=== PATIENT | female | born 2000 ===

== ENCOUNTER 2024-12-12 10:15 | Inpatient (IN) | payer MEDICAID, SELFPAY ==
[2024-12-12] VITALS (147 sets, daily range): BP systolic 69–139; BP diastolic 41–88; PULSE 63–127; RESP 16–20; TEMP 36.6–37.1; O2SAT 84–100; BMI 29.7
[2024-12-12] MEDS: OXYTOCIN INJ 10 UNIT/ML VIAL IM (10:25)
--- NOTE | 2024-12-12 10:35 | PD.ADDHP ---
Addendum History & Physical Addendum Date of report being addended: 12/12/24
--- NOTE | 2024-12-12 10:36 | PD.LDHP ---
Documentation for date of: 12/12/24 OB Labor/Induct. HPI History of Present Illness : 4 Para: 4 Term pregnancies: 0 pregnancies: 0 Living children: 4 History of Abortions: Spontaneous and Elective: 0 History of Vaginal deliveries: 0 History of sections: Yes History of : No LUIS: 12/19/24 History of present illness: Ivette is a 24-year-old 4 para 4 at 39 weeks with stated estimated due date of 12/17/2024 for patient who receives care with Dr. Perez at [facility]. Patient presented to labor and delivery through the emergency room after delivery and route to the hospital in her private vehicle. At the time of my evaluation the baby was on the mom's abdomen placenta was delivered and umbilical cord was still connected to the infant. The umbilical cord was doubly clamped and divided and was handed over to the waiting acid tender. Placenta was found floating between the patient's legs, placenta was removed, the skin was thoroughly cleaned and no vaginal lacerations were noted. Patient was only noted to have right clitoral laceration. This was repaired at the bedside using 3-0 Vicryl Past Medical History Surgical History SURGICAL: Positive Section Meds Home Medications and Allergies Home Medications ?Medication ?Instructions ?Recorded ?Confirmed ?Type prenat.vits,derik,nfv-zuar-xguez 1 tab PO QDAY 09/23/17 07/31/18 History ( Vitamin tablet) Allergies Allergy/AdvReac Type Severity Reaction Status Date / Time No Known Allergies Allergy Verified 07/31/18 10:44 OB Exam Physical Exam Vital signs: Pulse BP Pulse Ox 104 H 105/58 L 100 12/12/24 10:26 12/12/24 10:26 12/12/24 10:33 Constitutional Constitutional: no acute distress Routine HEENT Exam Head: Present normocephalic and atraumatic Eye: Present EOMI and PERRL ENT: Present mucous membranes moist Routine Neck Exam Neck: Present supple and trachea midline Routine Cardiovascular Exam Cardiovascular: Present RRR Routine Abdominal Exam Abdominal: Present soft and normoactive bowel sounds Routine Extremities Exam Extremities: Present full ROM Routine Skin Exam Skin: Present intact, dry and warm Routine Neurological Exam Neurological: Present alert, oriented X3 and CN II-XII intact Routine Psychiatric Exam Psychiatric: Present normal affect and normal thought process OB Assessment & Plan Assessment and Plan (1) Precipitous delivery: Status: Acute Assessment and plan: Patient is status post precipitous delivery routine care continue
--- NOTE | 2024-12-12 10:37 | EDNOTE_ITS ---
ED OB Contraction Preg RMI/HPI General Limitations: no limitations RME / HPI RME / HPI Narrative: DR. PARR MAIN ED EVALUATION: 24 year old female at 39 weeks gestation presents to the Emergency Department after precipitous delivery of a full-term infant in her vehicle at approximately 0950 hours. Labor onset was rapid with no reported complications. Patient reports all prior deliveries were vaginal and uncomplicated. Upon EMS arrival, was noted to be crying with pink coloration; umbilical cord remained attached. Placenta had not yet delivered; fundus palpated as slightly distended. Patient was hemodynamically stable and not actively bleeding. OB was notified and patient was transferred via gurney to OB unit for completion of delivery and care. Care transitioned to OBGYN team. Related Data Home Medications ?Medication ?Instructions ?Recorded ?Confirmed prenat.vits,derik,pbo-judi-oshhf 1 tab PO QDAY 09/23/17 07/31/18 ( Vitamin tablet) Previous Rx's ?Medication ?Instructions ?Recorded cephalexin 500 mg capsule 500 mg PO TID #21 caps 07/31 Allergies Allergy/AdvReac Type Severity Reaction Status Date / Time No Known Allergies Allergy Verified 07/31/18 10:44 Review of Systems Review of Systems Systems Reviewed: All systems reviewed, normal except as documented Past Medical History Social History SMOKING STATUS: Never smoker SECOND HAND EXPOSURE: No SUBSTANCE USE: does not use ALCOHOL: Never ED Exam General Limitations: Present no limitations General appearance: Present alert and in no apparent distress Head Head exam: Present atraumatic, normocephalic and normal inspection Eye Eye exam: Present normal appearance, PERRL and EOMI ENT ENT exam: Present normal exam, normal oropharynx and mucous membranes moist Neck Neck exam: Present normal inspection, full ROM and trachea midline Chest Chest inspection: Present normal inspection and symmetric chest wall rise Respiratory Respiratory exam: Present normal lung sounds bilaterally Cardiovascular Cardiovascular exam: Present regular rate, normal rhythm and normal heart sounds Abdominal Exam Abdominal exam: Present distention (abdomen is slightly distended, post ) and normal bowel sounds Extremities Exam Extremities exam: Present normal inspection and full ROM Back Exam Back exam: Present normal inspection and full ROM Neurological Exam Neurological exam: Present alert, oriented X3 and CN II-XII intact Psychiatric Psychiatric exam: Present normal affect and normal mood Skin Skin exam: Present warm, dry, intact and normal color Course Quality Measures none Orders Category Date Time Status Admit to Inpatient Status Routine Admission 12/12/24 10:28 Active Patient Condition Routine Admission 12/12/24 10:28 Ordered Abdominal Binder if Pt Desires x1 Care 12/12/24 10:49 Active Apply Ice Pack to Perineum PRN NOW Care 12/12/24 10:49 Active Breast Pump NOW Care 12/12/24 10:49 Active Consult Assistant Teacher NOW Care 12/12/24 10:28 Active DC IV X1 Care 12/12/24 10:49 Active Encourage Fluid Intake NOW Care 12/12/24 10:49 Active Insert IV NOW Care 12/12/24 10:28 Active May Shower NOW Care 12/12/24 10:49 Ordered Notify provider NEEDED Care 12/12/24 10:49 Active Obtain MMR Consent x1 Care 12/12/24 10:49 Active Obtain Tdap Consent x1 Care 12/12/24 10:49 Active Up ad humberto Routine Care 12/12/24 10:49 Ordered Urinary Catheter, Remove ONCE Care 12/12/24 10:49 Active Referral Routine Cons 12/12/24 10:49 Active Diet Regular Diet 12/12/24 Dinner Active CBC Routine Lab 12/12/24 10:49 Ordered CBC Stat Lab 12/12/24 10:30 Completed Syphilis Stat Lab 12/12/24 10:30 Received Type and Screen Stat Lab 12/12/24 10:30 Results Acetaminophen Tab [Tylenol Tab] Med 12/12/24 10:49 Active 325 mg PO Q4HR PRN Acetaminophen Tab [Tylenol Tab] Med 12/12/24 10:49 Active 650 mg PO Q6HR PRN BENZO/LANO/ALOE (Dermoplast) [Dermoplast] Med 12/12/24 10:28 Active 1 spray TOP PRN PRN HYDROcodone*/APAP 5/325 [[place] 5/325] Med 12/12/24 10:49 Active 1 tab PO Q4HR PRN HYDROcodone*/APAP 5/325 [[place] 5/325] Med 12/12/24 10:49 Active 2 tab PO Q6HR PRN Ibuprofen Tab [Motrin Tab] Med 12/12/24 10:49 Active 800 mg PO Q8HR PRN Ibuprofen Tab [Motrin Tab] Med 12/12/24 10:28 Discontinued 800 mg PO X1 ONE Lidocaine 1% 20 ml [Xylocaine 1% 20 ML] Med 12/12/24 10:28 Discontinued 20 ml INFL PRN ONE Measles, Mumps & Rubella Vacc [M-m-r II w/Diluent] Med 12/12/24 10:49 Active 0.5 ml SCI X1 PRN Methylergonovine Inj [Methergine Inj] Med 12/12/24 10:28 Discontinued 0.2 mg IM X1 PRN Mineral Oil Med 12/12/24 10:28 Discontinued 30 ml TOP PRN PRN Misoprostol [Cytotec] Med 12/12/24 10:[address] X1 PRN OXYTOCIN in NS 20 units [Pitocin 20 units in Ns] Med 12/12/24 10:30 Discontinued 20 unit in 1,000 ml IV 125 mls/hr Oxytocin Inj [Pitocin Inj] Med 12/12/24 10:28 Discontinued 10 unit IM X1 PRN Ringers Lactated 1000 ml [Lactated Ringers] 1,000 ml Med 12/12/24 10:30 Discontinued IV 100 mls/hr Ringers Lactated 500 ml [Lactated Ringers] 500 ml Med 12/12/24 10:28 Discontinued IV 999 mls/hr TET,DIP/PERT AC (Adult)-Tdap [Boostrix Adult (Tdap) Med 12/12/24 10:49 Active Vacc] 0.5 ml IMI X1 PRN Tranexamic Acid 1,000 mg Ivpb [Tranexamic Acid Ivpb] Med 12/12/24 10:28 Active 1,000 mg in 100 ml IV PRNMRX1 ceFAZolin/D5W 2 GM IV [Ancef 2gm Ivpb] Med 12/12/24 14:00 Active 2 gm in 100 ml IV Q8HR fentaNYL INJ [Sublimaze Inj] Med 12/12/24 10:28 Discontinued 100 mcg IVP Q2HR PRN fentaNYL INJ [Sublimaze Inj] Med 12/12/24 10:28 Discontinued 50 mcg IVP Q1HR PRN Code Status Routine Oth 12/12/24 10:28 Ordered Oxygen Delivery NOW RT 12/12/24 10:28 Active Transfer Order Routine Transfer 12/12/24 10:30 Completed Vital Signs Vital signs: Vital Signs Pulse Oximetry (%) 100 12/12/24 10:23 OB/Uterine Contractions MDM Narrative MDM Narrative:: I, Kalani Suárez am scribing for and in the presence of Dr. Parr. Patient data External records reviewed:: [facility] previous records Clinical information provided by:: patient Social determinants that could affect healthcare access:: none Patient has the following chronic illnesses:: . Denies any PMHx, surgeries, daily medications, or known allergies. How is presenting disease/condition affected by chronic disease/condition?: no chronic disease Evaluation data The following diagnostics were reviewed and interpreted by me:: other (specify) (none in emergency department) Lab and/or radiology exams considered but not ordered:: none Interpretation Summary: n/a Medications / Prescriptions Medications or Prescriptions considered but not ordered:: none Medication administrations:: Medication Administration History Acetaminophen (Acetaminophen 325 Mg Tablet) 325 mg PO Q4HR PRN PRN Reason: Patient rated pain 1 to 2 Stop: 01/11/25 10:48 Acetaminophen (Acetaminophen 325 Mg Tablet) 650 mg PO Q6HR PRN PRN Reason: Patient rated pain of 3 Stop: 01/11/25 10:48 Hydrocodone Bitart/Acetaminophen (Hydrocodone/Apap 5/325 Tablet) 1 tab PO Q4HR PRN PRN Reason: Patient rated pain 7 to 8 Stop: 12/17/24 10:48 Hydrocodone Bitart/Acetaminophen (Hydrocodone/Apap 5/325 Tablet) 2 tab PO Q6HR PRN PRN Reason: Patient rated pain 9 to 10 Stop: 12/17/24 10:48 Benzocaine (Benzo/Lano/Aloe (Dermoplast) 60 Gm Can) 1 spray TOP PRN PRN PRN Reason: PERINEAL DISCOMFORT Stop: 01/11/25 10:27 Diphtheria/Tetanus/Acell Pertussis (Diphth,Pertuss(Acell),Tet Vac 0.5 Ml Syr- Adult) 0.5 ml IMi X1 PRN PRN Reason: SEE COMMENTS Tranexamic Acid (Tranexamic Acid Ivpb) 1,000 mg in 100 mls @ 200 mls/hr IV PRNMRX1 PRN PRN Reason: BLEEDING Cefazolin Sodium (Ancef 2gm Ivpb) 2 gm in 100 mls @ 200 mls/hr IV Q8HR SAMIRA Stop: 12/19/24 13:59 Ibuprofen (Ibuprofen Tab 400 Mg Tablet) 800 mg PO Q8HR PRN PRN Reason: PAIN SCALE 4-6 (Moderate Stop: 01/11/25 10:48 Measles/Mumps/Rubella Vaccine Live (Measles, Mumps & Rubella Vacc 0.5 Ml Vial) 0.5 ml SCi X1 PRN PRN Reason: if non-immune or equivocal Discontinued Medications Fentanyl Citrate (Fentanyl Cit Inj 50 Mcg/Ml Amp 2ml) 50 mcg IVP Q1HR PRN PRN Reason: PAIN SCALE 4-6 (Moderate Stop: 12/17/24 10:27 Fentanyl Citrate (Fentanyl Cit Inj 50 Mcg/Ml Amp 2ml) 100 mcg IVP Q2HR PRN PRN Reason: PAIN SCALE 7-10 (Severe Stop: 12/17/24 10:27 Lactated Ringer's (Lactated Ringers) 1,000 mls @ 100 mls/hr IV .Q10H SAMIRA Stop: 01/11/25 10:29 Lactated Ringer's (Lactated Ringers) 500 mls @ 999 mls/hr IV .Q31M PRN PRN Reason: HR tracing (Per Policy) Stop: 01/11/25 10:27 Oxytocin/Sodium Chloride (Pitocin 20 Units In Ns) 20 unit in 1,000 mls @ 125 mls/hr IV .Q8H SAMIRA Stop: 01/11/25 10:29 Last Admin: 12/12/24 10:42 Dose: 125 mls/hr Documented By: TS Co-signed By: TPO Ibuprofen (Ibuprofen Tab 400 Mg Tablet) 800 mg PO X1 ONE Stop: 12/12/24 10:29 Last Admin: 12/12/24 10:43 Dose: 800 mg Documented By: TS Lidocaine HCl (Lidocaine Hcl 1% 20 Ml Vial) 20 ml INFL PRN ONE Stop: 12/12/24 10:29 Last Admin: 12/12/24 10:42 Dose: 20 ml Documented By: TS Methylergonovine Maleate (Methylergonovine Inj 0.2 Mg/Ml Vial) 0.2 mg IM X1 PRN PRN Reason: Excessive Bleeding Mineral Oil (Mineral Oil 30 Ml Udc) 30 ml TOP PRN PRN PRN Reason: SEE COMMENTS Stop: 01/11/25 10:27 Misoprostol (Misoprostol 200 Mcg Tablet) [address] X1 PRN PRN Reason: BLEEDING Oxytocin (Oxytocin Inj 10 Unit/Ml Vial) 10 unit IM X1 PRN PRN Reason: After placenta delivers Last Admin: 12/12/24 10:25 Dose: 10 unit Documented By: TS Co-signed By: TPO see above Consultations Consultation(s) initiated? (list below): Yes Diagnosis OB Contractions Differential Diagnosis: normal delivery at term, premature labor and other (full term delivery post status) Most likely diagnosis given after review of the tests above:: full term delivery post status Admission Indicated Admission indicated?: not indicated Explain why admission is indicated or not indicated:: Transfer of care to OB department Admission Request Was there a request for admission?: No Disposition Plan Disposition Plan: other (specify) (Transfer of care to OB department) Discharge Plan Prescriptions/Referrals Prescriptions/Med Rec: No Action cephalexin 500 mg capsule 500 mg PO TID Qty: 21 0RF Vitamin Tablet 1 tab PO QDAY Referrals: No Primary/Family,Physician [Primary Care Provider] - Patient/Caregiver Discharge Instructions Print Language: Lithuanian
[2024-12-12] MEDS: OXYTOCIN in NS 20 units 20 UNIT/1,000 ML BAG 125 UNIT IV (10:42)
[2024-12-12] MEDS: LIDOCAINE HCL 1% 20 ML VIAL INFL (10:42)
[2024-12-12] MEDS: IBUPROFEN TAB 400 MG TABLET 800 MG PO (10:43)
[2024-12-12 10:51] LABS: Basophils # (Auto) 0.1 Thou/mm3 (0.0-0.2); Basophils % (Auto) 0 % (0-2.5); Eosinophils # (Auto) 0.0 Thou/mm3 (0.0-0.5); Eosinophils % (Auto) 0 % (0-10); Hematocrit 26.8 % (36.0-46.0); Immature Granulocytes Auto 0.19 Thou/mm3 (0.00-0.00); Lymphocytes # (Auto) 1.8 Thou/mm3 (1.0-4.8); Lymphocytes % (Auto) 10 % (10-50); Mean Corpuscular HGB Conc 32.5 g/dl (31.0-37.0); Mean Corpuscular Hemoglobin 23.3 pg (25.0-35.0); Mean Corpuscular Volume 72 fL (80-100); Monocytes # (Auto) 0.7 Thou/mm3 (0.0-0.8); Monocytes % (Auto) 4 % (0-12); Neutrophils # (Auto) 16.1 Thou/mm3 (1.8-7.7); Neutrophils % (Auto) 85 % (37-80); Nucleated Red Blood Cell # 0.02 Thou/mm3 (0.00-0.00); Nucleated Red Blood Cell % 0 /100 WBC (0); Platelet Count 224 Thou/mm3 (140-440); RDW Standard Deviation 39.8 fL (36.4-46.3); Red Blood Count 3.74 Miln/mm3 (4.00-5.20); White Blood Count 18.9 Thou/mm3 (3.6-11.0)
[2024-12-12 11:08] LABS: Hemoglobin 8.7 g/dL (12.0-16.0)
[2024-12-12 11:26] LABS: Syphilis Nonreactive (Nonreactive)
--- NOTE | 2024-12-12 12:31 | XR_ITS ---
Examination: Pelvic ultrasound, transabdominal, complete Technique: Transabdominal ultrasound of the pelvis performed using grayscale imaging Date and time of exam: December 12, 2024 1254 hours INDICATIONS: today, clinical diagnosis retained products of conception FINDINGS: Uterus 17.7 cm endometrial stripe 0.9 cm Right ovary 3.6 cm arterial flow Left ovary 4.3 cm arterial flow IMPRESSION: Enlarged uterus Negative for retained products of conception
--- NOTE | 2024-12-12 12:52 | PC.NURSE ---
1222- RN taking pt to bathroom for PP initial void, fundal massage performed - firm, scant bleeding prior to ambulation to restroom, pt feeling faint when sitting on toilet. RN calling for help, BP taken 69/41, COTTON INSPECTOR called at 1225, pt taken back to bed via wheelchair. LR IV bolus given, Johnson catheter inserted, 20g IV inserted, and juice provided pt stating feeling much better. Dr. Negrete aware Verbal order for US of abd, manual extraction of golf size clot- fundal massage bogy---->firm. 1240 COTTON INSPECTOR team at bedside and called off.
[2024-12-12 14:46] LABS: Basophils # (Auto) 0.0 Thou/mm3 (0.0-0.2); Basophils % (Auto) 0 % (0-2.5); Eosinophils # (Auto) 0.0 Thou/mm3 (0.0-0.5); Eosinophils % (Auto) 0 % (0-10); Immature Granulocytes Auto 0.15 Thou/mm3 (0.00-0.00); Lymphocytes # (Auto) 1.2 Thou/mm3 (1.0-4.8); Lymphocytes % (Auto) 6 % (10-50); Mean Corpuscular HGB Conc 32.5 g/dl (31.0-37.0); Mean Corpuscular Hemoglobin 23.4 pg (25.0-35.0); Mean Corpuscular Volume 72 fL (80-100); Monocytes # (Auto) 0.7 Thou/mm3 (0.0-0.8); Monocytes % (Auto) 3 % (0-12); Neutrophils # (Auto) 18.9 Thou/mm3 (1.8-7.7); Neutrophils % (Auto) 90 % (37-80); Nucleated Red Blood Cell # 0.00 Thou/mm3 (0.00-0.00); Nucleated Red Blood Cell % 0 /100 WBC (0); Platelet Count 172 Thou/mm3 (140-440); RDW Standard Deviation 40.6 fL (36.4-46.3); Red Blood Count 2.73 Miln/mm3 (4.00-5.20); White Blood Count 21.0 Thou/mm3 (3.6-11.0)
--- NOTE | 2024-12-12 14:50 | PC.NURSE ---
1440: RN attempting to get pt up to bathroom pt ambulated to bathroom stated feeling fine, pt sitting on toilet and starts to feel faint again RN helping pt back to bed BP 123/57, Pulse- 80 Spo2- 100%
[2024-12-12 14:56] LABS: Hematocrit 19.7 % (36.0-46.0); Hemoglobin 6.4 g/dL (12.0-16.0)
[2024-12-12] MEDS: ceFAZolin/D5W 2 GM IV 2 GM/100 ML BAG IV (19:21)
[2024-12-12] MEDS: ACETAMINOPHEN 325 MG TABLET 650 MG PO (21:46)
[2024-12-13] VITALS (10 sets, daily range): BP systolic 94–110; BP diastolic 66–75; PULSE 67–80; RESP 15–18; TEMP 36.7–37.1; O2SAT 97–100
[2024-12-13] MEDS: ceFAZolin/D5W 2 GM IV 2 GM/100 ML BAG IV (03:40)
[2024-12-13] MEDS: ACETAMINOPHEN 325 MG TABLET 650 MG PO (03:41)
[2024-12-13 05:59] LABS: Basophils # (Auto) 0.1 Thou/mm3 (0.0-0.2); Basophils % (Auto) 0 % (0-2.5); Eosinophils # (Auto) 0.0 Thou/mm3 (0.0-0.5); Eosinophils % (Auto) 0 % (0-10); Hematocrit 26.5 % (36.0-46.0); Immature Granulocytes Auto 0.15 Thou/mm3 (0.00-0.00); Lymphocytes # (Auto) 3.5 Thou/mm3 (1.0-4.8); Lymphocytes % (Auto) 22 % (10-50); Mean Corpuscular HGB Conc 32.1 g/dl (31.0-37.0); Mean Corpuscular Hemoglobin 24.6 pg (25.0-35.0); Mean Corpuscular Volume 77 fL (80-100); Monocytes # (Auto) 0.9 Thou/mm3 (0.0-0.8); Monocytes % (Auto) 6 % (0-12); Neutrophils # (Auto) 11.0 Thou/mm3 (1.8-7.7); Neutrophils % (Auto) 70 % (37-80); Nucleated Red Blood Cell # 0.02 Thou/mm3 (0.00-0.00); Nucleated Red Blood Cell % 0 /100 WBC (0); Platelet Count 140 Thou/mm3 (140-440); RDW Standard Deviation 46.3 fL (36.4-46.3); Red Blood Count 3.46 Miln/mm3 (4.00-5.20); White Blood Count 15.7 Thou/mm3 (3.6-11.0)
[2024-12-13 06:02] LABS: Hemoglobin 8.5 g/dL (12.0-16.0)
--- NOTE | 2024-12-13 07:07 | PD.LDPPPRG ---
Subjective Subjective Interval history: Delivery type: Precipitous oid-kc-ahivtnwn delivery, patient received 3 units of packed RBCs and 1 unit of FFP and is stable Patient doing well this morning. No acute complaints. Ambulating, tolerating p.o. and voiding without difficulty. HTN/Pre-Eclampsia screen: No chest pain, shortness of breath, headache, visual changes, epigastric or right upper quadrant pain. Breast-feeding, lochia diminishing. Bowel: Flatus+/ BM+ Exam Vital Signs Temp Pulse Resp BP Pulse Ox O2 Del Method 98.1 F 70 16 104/66 100 Room Air 12/13/24 04:45 12/13/24 04:45 12/13/24 04:45 12/13/24 04:45 12/13/24 04:45 12/13/24 03:05 Constitutional Constitutional: no acute distress Routine HEENT Exam Head: Present normocephalic and atraumatic Eye: Present EOMI and PERRL ENT: Present mucous membranes moist Routine Neck Exam Neck: Present supple and trachea midline Routine Respiratory Exam Respiratory: Present chest non-tender, lungs clear, normal breath sounds and no resp distress Routine Cardiovascular Exam Cardiovascular: Present RRR Routine Abdominal Exam Abdominal: Present soft and normoactive bowel sounds Routine Extremities Exam Extremities: Present full ROM Routine Skin Exam Skin: Present intact, dry and warm Routine Neurological Exam Neurological: Present alert, oriented X3 and CN II-XII intact Routine Psychiatric Exam Psychiatric: Present normal affect and normal thought process Objective Labs 12/13/24 05:29 Labs: Laboratory Results - last 24 hr 12/12/24 12/12/24 12/13/24 10:30 14:26 05:29 WBC 18.9 H 21.0 H 15.7 H D RBC 3.74 L 2.73 L 3.46 L Hgb 8.7 L 6.4 L* D 8.5 L D Hct 26.8 L 19.7 L* 26.5 L MCV 72 L 72 L 77 L MCH 23.3 L 23.4 L 24.6 L MCHC 32.5 32.5 32.1 RDW Std Deviation 39.8 40.6 46.3 Plt Count 224 172 D 140 D Neut % (Auto) 85 H 90 H 70 Lymph % (Auto) 10 6 L 22 [place] % (Auto) 4 3 6 Eos % (Auto) 0 0 0 Baso % (Auto) 0 0 0 Neut # (Auto) 16.1 H 18.9 H 11.0 H Lymph # (Auto) 1.8 1.2 3.5 [place] # (Auto) 0.7 0.7 0.9 H Eos # (Auto) 0.0 0.0 0.0 Baso # (Auto) 0.1 0.0 0.1 Immature Gran # (Auto) 0.19 H 0.15 H 0.15 H Absolute Nucleated RBC 0.02 H 0.00 0.02 H Immature Gran % 1 H 1 H 1 H Nucleated RBC % 0 0 0 Syphilis Serology Nonreactive Blood Type O Positive Antibody Screen NEGATIVE Crossmatch See Detail Blood Bank Wristband ID Yes Blood Bank Comment FFP Ready Assessment & Plan Problem List (1) Precipitous delivery: Status: Acute Assessment and plan: 1. Continue routine /post-op care 2. Labs reviewed, cbc appropriate 3. Remove dressing/Johnson 4. Encourage to ambulate, shower 5. Encourage PO intake, breast feeding 6. Anticipate discharge home today once she completes 24 hours and if she continues to be stable (2) Acute blood loss anemia (ABLA): Status: Acute (3) History of delivery: Status: Acute (4) (vaginal after ): Status: Acute Time Spent With Patient Time: Total time spent is greater than 50% in coordination of care (as documented) at patient's floor/unit and/or counseling patient:
--- NOTE | 2024-12-13 07:09 | PD.LDDS ---
DS: Providers Provider Date of admission: 12/12/24 10:15 Primary care physician: Physician No Primary/Family Admitting Provider: Kan Negrete MD Attending Provider on Admission: Kan Negrete MD Consults: 12/12/24 10:49 Referral Routine Comment: Attending Provider on DC: Kan Negrete MD Discharging Provider: Kan Negrete MD DS: Diagnosis Discharge Diagnosis (1) (vaginal after ): Status: Acute (2) History of delivery: Status: Acute (3) Acute blood loss anemia (ABLA): Status: Acute (4) Precipitous delivery: Status: Acute Problem List Completed Was Problem List Reviewed/Reconciled?: Yes Summary/Hosp Course Brief History: Ivette is a 24-year-old 4 para 4 at 39 weeks with stated estimated due date of 12/17/2024 for patient who receives care with Dr. Perez at [facility]. Patient presented to labor and delivery through the emergency room after delivery and route to the hospital in her private vehicle. At the time of my evaluation the baby was on the mom's abdomen placenta was delivered and umbilical cord was still connected to the . The umbilical cord was doubly clamped and divided and infant was handed over to the waiting gambreler helper. Placenta was found floating between the patient's legs, placenta was removed, the skin was thoroughly cleaned and no vaginal lacerations were noted. Patient was only noted to have right clitoral laceration. This was repaired at the bedside using 3-0 Vicryl Peripartum Data Delivery Method: Episiotomy Description: RIGHT CLITORAL TEAR Time Spent with Patient Time attestation: Total time spent providing and/or coordinating discharge services: Exam Vital Signs Temp Pulse Resp BP Pulse Ox O2 Del Method 98.1 F 70 16 104/66 100 Room Air 12/13/24 04:45 12/13/24 04:45 12/13/24 04:45 12/13/24 04:45 12/13/24 04:45 12/13/24 03:05 Discharge Plan Plan Patient Disposition: HOME (Self Care) Patient condition on transfer: Stable Prescriptions/Referrals Prescriptions/Med Rec: New ibuprofen 400 mg Tablet 800 mg PO Q8HR PRN (Reason: Pain Scale 4-6 (Moderate) 10 Days Qty: 40 0RF docusate sodium [Stool Softener] 100 mg capsule 100 mg PO QDAY 30 Days Qty: 30 0RF ferrous sulfate 324 mg (65 mg iron) tablet,delayed release (DR/EC) 324 mg PO QDAY 30 Days Qty: 30 3RF Discontinued cephalexin 500 mg capsule 500 mg PO TID Qty: 21 0RF Vitamin Tablet 1 tab PO QDAY Referrals: No Primary/Family,Physician [Primary Care Provider] - Kan Negrete MD [Physician] - Patient/Caregiver Discharge Instructions Meds to Beds: Yes Discharge Activity: activity as tolerated Education Materials: After a Vaginal Print Language: Irish Stand Alone Forms: [employer] Award Info., Patient Portal Info Letter Planned Discharge Date 12/13/24
== END 2024-12-13 13:50 | disposition home or self-care (01) | DRG 561 ==
LOC: S4SX 15:15 → S4NX 19:11 → S4SX 19:18 → S4NX 19:36
PROVIDERS: Admitting Provider Obstetrics & Gynecology; Visit Provider Obstetrics & Gynecology
DX: Z39.0 Encounter for care and examination of mother immediately after delivery (principal); O72.2 Delayed and secondary postpartum hemorrhage; O34.219 Maternal care for unspecified type scar from previous cesarean delivery; O62.3 Precipitate labor; O99.03 Anemia complicating the puerperium; D62 Acute posthemorrhagic anemia; O70.0 First degree perineal laceration during delivery; Z37.0 Single live birth; Z3A.39 39 weeks gestation of pregnancy
CPT/HCPCS: 36415; 59409; 76856; 85025; 86780; 86850; 86900; 86901; 86923; 86927; 94762; J0689; J2590; J3490; P9016; P9060; A9270